=== PATIENT | male | born 1985 | race African-American/Black ===

== ENCOUNTER 2018-12-17 15:22 | Emergency (ER) | payer MEDICAID ==
[~2018-12-17] VITALS: Ht 180.3 cm; Wt 97.5 kg
[2018-12-17 16:51] VITALS: BP 148/76
[2018-12-17 17:13] LABS: Urine Bacteria FEW /hpf (None Seen); Urine Blood 1+ /uL (Negative); Urine Mucus FEW (None Seen); Urine Specific Gravity 1.029 (1.001-1.035); Urine WBC 421 /hpf (0 - 3); Urine WBC Clumps PRESENT /hpf (None Seen)
[2018-12-17] MEDS ORDERED: AZITHROMYCIN 250 MG TAB PO ONE (17:15)
[2018-12-17] MEDS ORDERED: cefTRIAXone SODIUM 250 MG VL IM ONE (17:15)
== END 2018-12-17 17:47 | disposition home or self-care (01) ==
LOC: ER 15:22
DX: A64 Unspecified sexually transmitted disease (principal); N39.0 Urinary tract infection, site not specified
CPT/HCPCS: 81001; 87086; 96372; 99283; J0696